=== PATIENT | male | born 1975 | race African-American/Black ===

== ENCOUNTER 2017-06-12 08:06 | Outpatient (CLI) ==
[2017-06-07 23:42] VITALS: BMI 28.5
[2017-06-12 08:35] LABS: BASOPHILS % (AUTO) 0.5 % (0.0-3.0); EOSINOPHILS # (AUTO) 0.3 K/ul (0.0-0.7); EOSINOPHILS % (AUTO) 4.1 % (0.0-7.0); HEMATOCRIT 43.5 % (42.0-52.0); HEMOGLOBIN 15.5 g/dl (14.0-18.0); IMMATURE GRANULOCYTE % (AUTO) 0.2 % (0.0-5.0); LYMPHOCYTES # (AUTO) 3.1 K/uL (0.60-3.4); LYMPHOCYTES % (AUTO) 37.4 (10.0-50.0); MEAN CORPUSCULAR HEMOGLOBIN 28.9 pg (27.0-31.0); MEAN CORPUSCULAR HGB CONC 35.6 (31.8-35.4); MEAN CORPUSCULAR VOLUME 81.2 fl (80.0-94.0); MONOCYTES # (AUTO) 0.8 K/uL (0.4-2.0); MONOCYTES % (AUTO) 9.1 (0-10); NEUTROPHILS # (AUTO) 4.1 K/ul (2.0-6.9); NEUTROPHILS % (AUTO) 48.7; PLATELET COUNT 186 10^3/uL (140-440); RED BLOOD COUNT 5.36 10^6/ul (4.70-6.10); WHITE BLOOD COUNT 8.39 K/ul (4.2-10.2)
--- NOTE | 2017-06-12 08:51 | US ---
EXAM: Ultrasound retroperitoneal complete. HISTORY: Acute kidney failure. COMPARISON: 06/08/2017. TECHNIQUE: Multiple monroe scale and color Doppler images. FINDINGS: Right kidney measures 10.7 x 4.2 x 5 cm. The left kidney measures 13.4 x 5.6 x 5.3 cm. Corticomedullary differentiation is normal. There is no hydronephrosis. Urinary bladder is unremarkable. Since the prior study, there has been no significant interval [facility] Fund[facility]. IMPRESSION: No sonographic abnormality of the kidneys or bladder.
[2017-06-12 09:06] LABS: ALBUMIN 3.6 g/dL (3.4-5.0); ALBUMIN/GLOBULIN RATIO 0.9; BILIRUBIN,TOTAL 0.77 mg/dL (0.00-1.20); BUN/CREATININE RATIO 8.22; CALCIUM 9.6 mg/dL (8.2-10.2); CREATININE 1.58 mg/dL (0.60-1.10); TOTAL PROTEIN 7.6 g/dL (6.4-8.2)
== END 2017-06-12 08:07 | disposition home or self-care (01) ==
LOC: RAD 08:06
PROVIDERS: ATTEND Internal Medicine
DX: N17.9 Acute kidney failure, unspecified (principal)
CPT/HCPCS: 36415; 76770; 80053; 85025